=== PATIENT | male | born 2000 | race Caucasian/White ===

== ENCOUNTER 2023-10-16 13:24 | Outpatient (AMB) | payer MEDICAID, SELFPAY ==
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
== END 2023-10-16 14:06 | disposition home or self-care (01) ==
PROVIDERS: PCP Nurse Practitioner; Visit Provider Urology
DX: N50.811 Right testicular pain (principal); R45.89 Other symptoms and signs involving emotional state; Z13.9 Encounter for screening, unspecified
CPT/HCPCS: 99204

== ENCOUNTER → 2023-10-16 13:24 | Outpatient (BNVA) | payer MEDICAID, SELFPAY | PROVIDERS: PCP Nurse Practitioner; Visit Provider Urology | DX: N50.811 Right testicular pain (principal); R45.89 Other symptoms and signs involving emotional state | CPT/HCPCS: 81003; 99202 ==